=== PATIENT | female | born 1965 | race Caucasian/White ===

== ENCOUNTER 2017-08-09 15:51 | Outpatient (CLI) | payer BC, OTHER ==
--- NOTE | 2017-08-10 16:56 | Mammography Report ---
DIGITAL SCREENING MAMMOGRAM: 08/09/2017 CLINICAL INDICATION: A 52-year-old with history of benign excisional biopsy for screening, history of late childbearing. COMPARISON: 06/03/2014, 04/28/2014, 04/11/2014, 10/31/2013, 06/28/2010, 12/01/2009, 11/24/2009. TECHNIQUE: Routine CC and MLO projections were obtained of the breasts. FINDINGS: The breasts again demonstrate heterogeneously dense fibroglandular parenchyma bilaterally. Post-biopsy changes in the right breast are stable. Coarse and punctate, typically benign calcifications are present. No suspicious masses, clustered microcalcifications, or regions of architectural distortion are identified. IMPRESSION: BENIGN FINDINGS. RECOMMENDATION: Routine annual screening unless otherwise clinically indicated. BIRADS category 2 benign findings. STANDARD QUALIFYING STATEMENTS 1. This examination was reviewed with the aid of Computed-Aided Detection (CAD). 2. A negative or benign imaging report should not delay biopsy if clinically suspicious findings are present. Consider surgical consultation if warranted. More than 5% of cancers are not identified by imaging. 3. Dense breasts may obscure an underlying neoplasm. TD: 08/10/2017 15:04
== END 2017-08-09 15:52 | disposition home or self-care (01) ==
LOC: DI 15:51
PROVIDERS: ATTEND Physician Assistant
DX: Z12.31 Encounter for screening mammogram for malignant neoplasm of breast (principal)
CPT/HCPCS: 77067

== ENCOUNTER 2018-11-28 16:11 | Outpatient (CLI) | payer OTHER ==
--- NOTE | 2018-11-29 14:58 | Mammography Report ---
Reason: SCREENING MAMMO Procedure Date: 11/28/2018 Accession Number: [id number] / [id number] Procedure: SARAH - Screening Mammo w/Javy CPT Code: FULL RESULT: EXAM: Screening Mammo w/Javy DATE: 11/28/2018 4:59 PM CLINICAL HISTORY: Routine screening. History of prior right breast surgery. TECHNIQUE: (B) - Bilateral CC and MLO views were obtained. COMPARISON: 08/09/2017, 04/28/2014, 04/11/2014 and 10/31/2013 PARENCHYMAL PATTERN: (VD) - The breasts demonstrate extremely dense parenchyma bilaterally, limiting the sensitivity of mammography. FINDINGS: No significant interval change on the left. There are no suspicious masses, calcifications, or areas of distortion. On the right there are 2 nodules, one measuring 2.8 cm in the immediate retroareolar breast and the other measuring 1.5 cm in the 9:00 position approximately 8.5 cm from the nipple. Other nodules may be present but obscured by the dense breast tissue. Postsurgical architectural distortion is also present in the 9:00 position. No suspicious microcalcifications on the right. IMPRESSION: Incomplete examination. BI-RADS category 0. Needs right breast ultrasound. Negative left breast. RECOMMENDATION: (ADDUS) - Targeted ultrasound recommended. Right breast BI-RADS CATEGORY: (0) - Incomplete Examination - need additional evaluation. STANDARD QUALIFYING STATEMENTS: 1. This examination was not reviewed with the aid of Computer-Aided Detection (CAD). 2. A negative or benign imaging report should not preclude biopsy if clinically suspicious findings are present. 3. Dense breasts may obscure an underlying neoplasm. 4. This examination was reviewed with the aid of 3D breast imaging (tomosynthesis).
== END 2018-11-28 16:12 | disposition home or self-care (01) ==
LOC: DI 16:11
PROVIDERS: ATTEND Internal Medicine
DX: Z12.31 Encounter for screening mammogram for malignant neoplasm of breast (principal)
CPT/HCPCS: 77063; 77067

== ENCOUNTER 2019-10-21 07:55 | Day surgery (SDC) | payer OTHER ==
[~2019-10-21 07:55] MED LIST: BUFFERED LIDOCAINE 10 ML SYRINGE ONE; CEFAZOLIN SODIUM IN 0.9 % NACL 2 GM/100 ML BAG IV ONE
[2019-10-21] MEDS ORDERED: MIDAZOLAM 2 MG/2 ML VIAL IVP ONE (07:56)
[2019-10-21] MEDS ORDERED: fentaNYL 100 MCG/2 ML VIAL IVP ONE (07:56)
[2019-10-21] MEDS ORDERED: PROPOFOL 200 MG/20 ML VIAL IVP ONE (07:56)
[2019-10-21] MEDS ORDERED: ONDANSETRON 4 MG/2 ML VIAL IVP ONE (07:56)
[2019-10-21] MEDS ORDERED: DEXAMETHASONE 4 MG/ML VIAL IVP ONE (07:56)
[2019-10-21] MEDS ORDERED: BUFFERED LIDOCAINE 10 ML SYRINGE IU ONE (09:57)
--- NOTE | 2019-10-21 11:50 | ANESTHESIA ---
Pre-Anesthesia VS, & Labs - Diagnosis right breast mass - Procedure right breast lumpectomy after needle localization Vital Signs: Temp Pulse Resp BP Pulse Ox 36.8 C 71 16 119/62 96 10/21/19 08:00 10/21/19 08:00 10/21/19 08:00 10/21/19 08:00 10/21/19 08:00 Height 57 ft Weight (kg) 188.5 kg Body Mass Index 26.7 - NPO >8 hours - Is Patient ?: No Home Medications and Allergies Home Medications: Ambulatory Orders Aspirin [Aspirin EC] 81 mg PO DAILY 09/30/19 Calcium Carbonate [Calcium] 600 mg PO BID 09/30/19 Cholecalciferol (Vitamin D3) [Vitamin D] 2,000 unit PO DAILY 09/30/19 Glucos Sul 2Kcl/MSM/Chond/C/Mn [Glucosamine Chondroitin Cap] 1 each PO DAILY 09/30/19 Ibuprofen [Motrin] 600 mg PO Q6H PRN 09/30/19 Active Medications Lidocaine/Sodium Bicarbonate (Buffered Lidocaine) 10 ml IU ONCE ONE Stop: 10/21/19 09:58 Last Admin: 10/21/19 09:58 Dose: 10 ml Documented by: Lactobacillus Combination No.4 [Probiotic] 1 cap PO DAILY 10/01/14 Aspirin [Aspirin EC] 81 mg PO DAILY 09/30/19 Calcium Carbonate [Calcium] 600 mg PO BID 09/30/19 Cholecalciferol (Vitamin D3) [Vitamin D] 2,000 unit PO DAILY 09/30/19 Glucos Sul 2Kcl/MSM/Chond/C/Mn [Glucosamine Chondroitin Cap] 1 each PO DAILY 09/30/19 Ibuprofen [Motrin] 600 mg PO Q6H PRN 09/30/19 Allergies/Adverse Reactions: Allergies Allergy/AdvReac Type Severity Reaction Status Date / Time morphine AdvReac Severe Nausea Verified 10/18/19 11:31 fluoroquinolones Allergy hepatitis Uncoded 10/18/19 11:31 Anes History & Medical History - Anesthetic History Anesthesia Complications: reports: Post-Operative Nausea/Vomiting - Medical History Cardiovascular: reports: None Pulmonary: reports: None Gastrointestinal: reports: GERD, Hepatitis (fluroquinolones induced), Other Urinary: reports: None Neuro: reports: None Musculoskeletal: reports: Osteoarthritis Endocrine/Autoimmune: reports: None Blood Disorders: reports: None Skin: reports: Rosacea Smoking Status: Never smoker Psychosocial: reports: No issues indicated - Surgical History General: Cholecystectomy, Colonoscopy, EGD Eyes Ears Nose Throat (EENT): Tonsil/Adenoidectomy Gynecologic: Other Neurologic: Other Dermatologic: Skin cancer surgery Exam General: Alert, Oriented x3, Cooperative, No acute distress Dental: WNL, Other (overbite) Mouth Openin Fingerbreadth Neck Mobility: Normal Mallampati classification: III Thyromental Distance: 4-6 cm Mental/Cognitive Status: Alert/Oriented X3, Normal for patient Plan Anesthesia Type: General Consent for Procedure(s) Verified and Reviewed: Yes Code Status: Attempt Resuscitation ASA classification: 2-Mild systemic disease Is this case an emergency?: No
[2019-10-21] MEDS ORDERED: BUPIVACAINE 0.5% PF 30 ML VIAL ONE (12:06)
[2019-10-21] MEDS ORDERED: LIDOCAINE 1%-EPI 1:100000 20 ML MDV ONE (12:06)
[2019-10-21] MEDS ORDERED: LIDOCAINE 1%-EPI 1:100000 30 ML MDV SUBQ ONE ×2 (12:48)
[2019-10-21] MEDS ORDERED: BUPIVACAINE 0.5%-EPI 1:200000 PF 30 ML VIAL SUBQ ONE ×2 (12:48)
--- NOTE | 2019-10-21 13:13 | OPERATIVE REPORT ---
Operative Report - General Planned Procedure: Right breast lumpectomy after needle localization Pre-Op Diagnosis: Right breast mass Procedure Performed: Right breast lumpectomy after needle localization Post Op Diagnosis: Same - Procedure Note Primary Surgeon: Segundo Anesthesia Provider: MEGHAN Martinez Anesthesia Technique: General LMA, Local Pathology: Specimen oriented and submitted to pathology Estimated Blood Loss (mL): 25 Indications: Biopsy proven papillary lesion of the right breast Findings: Clip contained within the specimen Complications: None apparent - Other Other Information/Narrative: After obtaining informed consent, the patient is brought to the operating room and placed in the supine position on the operating table. Following successful induction of general endotracheal anesthesia, appropriate padding of all bony prominences, and placement appropriate monitors, the right breast was prepped and draped in the standard surgical fashion. A timeout was held per scope protocol. All elements of the surgical safety checklist were followed before, during, and after the procedure. We began the procedure by infiltrating a mixture of local anesthetics around the localizing wire in the inframammary fold to the right breast. Incision was then created here and carried through the skin and subcutaneous tissue. The palpable mass and wire were grasped with an Allis clamp and liberated from the surrounding tissue sharply. The specimen was marked for orientation and submitted to pathology. Unfortunately, while we were marking the specimen the wire became dislodged. It was submitted with the specimen in the same container. The wound was checked for hemostasis it was irrigated with warm water and checked repeatedly. We were satisfied with our hemostatic condition, the wound was closed in 2 layers with Vicryl Monocryl suture and Dermabond applied. The radiologist called back in the room notifying us that the marking clip was in the center of the specimen. All sponge, needle, and instrument counts were correct at the conclusion of the case the patient was allowed to wake from anesthesia without difficulty and taken to the postanesthesia care unit in good condition.
[2019-10-21] MEDS ORDERED: IBUPROFEN 600 MG TABLET PO PRN ×2 (13:16→13:20)
[2019-10-21] MEDS ORDERED: ONDANSETRON 4 MG/2 ML VIAL IVP PRN ×2 (13:16→13:35)
[2019-10-21] MEDS ORDERED: ACETAMINOPHEN 325 MG TABLET PO PRN (13:16)
[2019-10-21] MEDS ORDERED: traMADol 50 MG TABLET PO PRN (13:17)
[2019-10-21] MEDS ORDERED: LACTATED RINGERS 1,000 ML IV ONE (13:18)
[2019-10-21] MEDS ORDERED: HYDROmorphone 0.5 MG/0.5 ML SYRINGE IVP PRN (13:35)
[2019-10-21] MEDS ORDERED: NALOXONE 0.4 MG/ML VIAL IVP PRN (13:35)
[2019-10-21] MEDS ORDERED: ATROPINE ABBOJECT 1 MG/10 ML SYRINGE IVP PRN (13:35)
[2019-10-21] MEDS ORDERED: fentaNYL 100 MCG/2 ML VIAL IVP PRN (13:35)
[2019-10-21] MEDS ORDERED: ONDANSETRON 4 MG/2 ML VIAL ONE (13:36)
[2019-10-21] MEDS ORDERED: LACTATED RINGERS 1,000 ML IV SCH (14:00)
[2019-10-21 14:52] VITALS: BP 133/60
[2019-10-21] MEDS ORDERED: NON FORMULARY MED (Calcium Carbonate [Calcium] 600 MG) PO SCH (21:00)
--- NOTE | 2019-10-22 06:02 | Ultrasound Report ---
ULTRASOUND GUIDED WIRE LOCALIZATION RIGHT BREAST WITH POST MAMMOGRAPHIC IMAGIN10/21/2019 CLINICAL: Pre-op wire localization with ultrasound guidance. Correlation is made to exams dated: 09/04/2019 ultrasound biopsy, 09/04/2019 mammogram, 08/19/2019 ultra sound, and 08/19/2019 mammogram - [facility]. A wire localization using ultrasound guidance was performed for the irregular shaped mass located in the right breast at 8 o'clock posterior depth. This was described on the previous mammography and ul trasound reports. The skin was prepped in the usual manner. Topical and local anesthetic was admini stered to the access site. A skin darby was made in the breast. The localization was approached from the lateral aspect. A J-hook wire was inserted into the targeted area under ultrasound guidance. A sterile dressing was applied to the access site. Post placement mammographic imaging was obtained. IMPRESSION: WIRE LOCALIZATION Wire localization for the mass in the right breast at 8 o'clock posterior depth was successful. Jolie Grimm M.D. [facility]/:10/21/2019 17:02:52 BI-RADS CATEGORY: () - Unspecified - other recall n/a LATERALITY: (B)
--- NOTE | 2019-10-22 06:02 | Mammography Report ---
SPECIMEN RIGHT BREAST: 10/21/2019 CLINICAL: Post right lumpectomy. Right breast specimen. Correlation is made to exams dated: 10/21/2019 mammogram, 10/21/2019 localization - [facility], 09/04/2019 mammogram, 08/19/2019 mammogram - [facility], 11/28/2018 mammogram, and 2017 mammogram - [facility]. A surgical biopsy specimen was imaged for the mass located in the right breast at 8 o'clock posterio r depth. Biopsy clip was present in the mid portion of the specimen. Localization wire had been rem pily. IMPRESSION: SPECIMEN The imaged specimen includes a biopsy clip. Jolie Grimm M.D. [facility]/:10/21/2019 17:04:49 BI-RADS CATEGORY: () - Unspecified - other recall n/a LATERALITY: (B)
--- NOTE | 2019-10-22 06:02 | Mammography Report ---
UNILATERAL RIGHT DIGITAL DIAGNOSTIC MAMMOGRAM: 10/21/2019 CLINICAL: Pre op wire localization with ultrasound. Comparison is made to exams dated: 09/04/2019 mammogram, 08/19/2019 mammogram - [facility], 019 mammogram, and [facility] The tissue of right breast is heterogeneously dense. This may lower the sensitivity of mammography. There is a marker clip and mass in the 8 o'clock position of the right breast. Localiztion wire is i mmediately adjacent to the clip. IMPRESSION: POST PROCEDURE MAMMOGRAM FOR MARKER PLACEMENT There was a successful wire localization in the right breast at the 8 o'clock position. NOTE: For mammograms, a report in lay terms will be sent to the patient. Approximately 15% of breast malignancies will not be visualized mammographically. In the management of a palpable breast mass, a negative mammogram must not discourage biopsy of a clinically suspicious lesion. Electronically Signed By: Jolie Grimm M.D. [facility]/:10/21/2019 17:08:50 ACR BI-RADS Category Post-procedure mammogram for marker placement PARENCHYMAL PATTERN: (D) - The breast(s) demonstrate(s) heterogeneously dense fibroglandular parnaima ma. BI-RADS CATEGORY: () - Unspecified - other recall n/a LATERALITY: (B)
[2019-10-22] MEDS ORDERED: ASPIRIN EC 81 MG TABLET PO SCH (09:00)
[2019-10-22] MEDS ORDERED: NON FORMULARY MED (Cholecalciferol (Vitamin D3) [Vitamin D3] 2,000 UNIT) PO SCH (09:00)
[2019-10-22] MEDS ORDERED: [UNRECOGNIZED DRUG - OTHER] PO SCH (09:00)
[2019-10-22] MEDS ORDERED: GLUCOS SUL PO SCH (09:00)
[2019-10-22] MEDS ORDERED: LACTOBACILLUS COMBINATION NO 4 PO SCH (09:00)
--- NOTE | 2019-10-22 10:12 | ANESTHESIA POST OP EVALUATION ---
Anesthesia Post Eval - Post Anesthesia Eval Vitals: Last Vital Signs Temp 36.5 C 10/21/19 14:40 Pulse 68 10/21/19 14:40 Resp 15 10/21/19 14:40 BP 133/60 H 10/21/19 14:40 Pulse Ox 98 10/21/19 14:40 CV Function Including HR & BP: positive: Stable Pain Control: positive: Satisfactory Nausea & Vomiting: positive: Negative Mental Status: positive: Baseline Respiratory Status: Airway Patent Hydration Status: Satisfactory Anesthesia Complications: positive: None
== END 2019-10-21 07:56 | disposition home or self-care (01) ==
LOC: SDS 07:55
PROVIDERS: ATTEND Surgery
PROC: 0HBT0ZZ Excision of Right Breast, Open Approach (ICD-10-PCS; principal; 2019-10-21 09:30)
DX: D24.1 Benign neoplasm of right breast (principal); K58.9 Irritable bowel syndrome, unspecified; E55.9 Vitamin D deficiency, unspecified; K21.9 Gastro-esophageal reflux disease without esophagitis; Z87.891 Personal history of nicotine dependence; Z79.82 Long term (current) use of aspirin
CPT/HCPCS: 19285; 19301; 76098; 77065; J0690; J7120

== ENCOUNTER 2020-01-05 15:40 | Emergency (ER) | payer OTHER ==
[2020-01-05 15:48] VITALS: BP 140/70
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
== END 2020-01-05 17:19 | disposition home or self-care (01) ==
LOC: ED 15:40
DX: S42.251A Displaced fracture of greater tuberosity of right humerus, initial encounter for closed fracture (principal); V19.9XXA Pedal cyclist (driver) (passenger) injured in unspecified traffic accident, initial encounter; Y93.55 Activity, bike riding
CPT/HCPCS: 99283; 99284

== ENCOUNTER 2021-10-01 15:07 | Outpatient (CLI) | payer OTHER ==
--- NOTE | 2021-10-01 16:10 | XRAY Report ---
PROCEDURE: Calcaneus LT INDICATIONS: LT CALCANEAL PAIN TECHNIQUE: Two views of the calcaneus were acquired. COMPARISON: None FINDINGS: Bones: No fractures or dislocations. Well-defined plantar calcaneal enthesophyte is seen. No suspici ous bony lesions. Soft tissues: No suspicious calcifications. Achilles tendon appears normal. IMPRESSION: Well-defined plantar calcaneal enthesophyte. No calcaneal fracture or dislocation. No gross soft tiss ue abnormality. Reviewed by: Santhosh Cruz MD on 10/01/2021 4:08 PM PDT Approved by: Santhosh Cruz MD on 10/01/2021 4:08 PM PDT Station ID: [id number]
== END 2021-10-01 15:08 | disposition home or self-care (01) ==
LOC: DI 15:07
PROVIDERS: ATTEND Podiatrist
DX: M77.32 Calcaneal spur, left foot (principal)

== ENCOUNTER 2023-08-30 19:35 | Emergency (ER) | payer OTHER ==
[2023-08-30 20:01] VITALS: BP 149/89; O2SAT 100
--- NOTE | 2023-08-30 20:44 | XRAY Report ---
PROCEDURE: Chest 2V INDICATIONS: coughing/fever TECHNIQUE: 2 views of the chest were acquired. COMPARISON: None. FINDINGS: Surgical changes and devices: None. Lungs and pleura: No pleural effusions or pneumothorax. Lungs are clear. Mediastinum: Mediastinal contours appear normal. Heart size is normal. Bones and chest wall: No suspicious bony lesions. Overlying soft tissues appear unremarkable. IMPRESSION: No acute cardiopulmonary process. No focal consolidation. Reviewed by: Harvinder Chan MD on 08/30/2023 8:42 PM PDT Approved by: Harvinder Chan MD on 08/30/2023 8:42 PM PDT Station ID: [id number]
[2023-08-30 21:01] LABS: CORONAVIRUS 229E-RESP PCR NOT DETECTED; CORONAVIRUS HKU1-RESP PCR NOT DETECTED; CORONAVIRUS NL63-RESP PCR NOT DETECTED; CORONAVIRUS OC43-RESP PCR NOT DETECTED; HUMAN METAPNEUMOVIRUS NOT DETECTED; INFLUENZA A- RESP PCR PANEL NOT DETECTED; RHINOVIRUS/ENTEROVIRUS NOT DETECTED; SARS-CoV-2 -RESP PCR PANEL NOT DETECTED
[2023-08-30 21:02] LABS: B. PARAPERTUSSIS- RESP PCR PAN NOT DETECTED; B. PERTUSSIS- RESP PCR PANEL NOT DETECTED; C. PNEUMONIAE- RESP PCR PANEL NOT DETECTED; INFLUENZA B - RESP PCR PANEL NOT DETECTED; M. PNEUMONIAE- RESP PCR PANEL NOT DETECTED; PARAINFLUENZA VIRUS 1 NOT DETECTED; PARAINFLUENZA VIRUS 2 NOT DETECTED; PARAINFLUENZA VIRUS 3 NOT DETECTED; PARAINFLUENZA VIRUS 4 NOT DETECTED; RSV- RESP PCR PANEL NOT DETECTED
--- NOTE | 2023-08-30 21:12 | ED Physician Documentation ---
History of Present Illness - Stated complaint Stated Complaint: COUGH/FEVER - Chief complaint Chief Complaint: Resp - History obtained from History obtained from: Patient - Additonal information Additional information: 58-year-old woman presents with nonproductive cough starting today at home with Tmax 99.5. Patient also endorses sore throat but denies shortness of breath, chest pain, nausea vomiting diarrhea or back pain. PD PAST MEDICAL HISTORY - Past Medical History Past Medical History: Yes Cardiovascular: None Respiratory: None Neuro: None Endocrine/Autoimmune: None GI: GERD, Hepatitis, Other [employer]: None : None HEENT: Chronic vision loss Psych: Depression Musculoskeletal: Osteoarthritis Derm: Rosacea - Past Surgical History Past Surgical History: Yes General: Cholecystectomy, Colonoscopy, EGD /[employer]: Other Neuro: Other HEENT: Tonsil/Adenoidectomy Derm: Skin cancer surgery - Present Medications Home Medications: Ambulatory Orders Medication Instructions Recorded Confirmed Ibuprofen [Motrin] 600 mg PO Q6HR PRN tablet 10/21/19 - Allergies Allergies/Adverse Reactions: Allergies Allergy/AdvReac Type Severity Reaction Status Date / Time morphine AdvReac Severe Nausea Verified 08/30/23 20:00 fluoroquinolones Allergy hepatitis Uncoded 08/30/23 20:00 - Social History Does the pt smoke?: No Smoking Status: Never smoker Does the pt drink ETOH?: No Does the pt have substance abuse?: No - Immunizations Immunizations are current?: Yes - POLST Patient has POLST: No PD ED PE NORMAL - Vitals Vital signs reviewed: Yes - General General: Alert and oriented X 3, No acute distress, Well developed/nourished - HEENT HEENT: Atraumatic, PERRL, EOMI, Moist mucous membranes, Pharynx benign - Neck Neck: Supple, no meningeal sign - Cardiac Cardiac: RRR - Respiratory Respiratory: No respiratory distress, Clear bilaterally - Abdomen Abdomen: Non tender, Non distended - Derm Derm: Normal color Results - Vitals Vitals: Vital Signs - 24 hr 08/30/23 19:54 Temperature 36.7 C Heart Rate 83 Respiratory 18 Rate Blood Pressure 149/89 H O2 Saturation 100 Oxygen O2 Source Room air - Labs Labs: Laboratory Tests 08/30/23 20:00 Nasal Adenovirus (PCR) NOT DETECTED Nasal B. parapertussis DNA (PCR) NOT DETECTED Nasal Coronavir 229E PCR NOT DETECTED Nasal Coronavir HKU1 PCR NOT DETECTED Nasal Coronavir NL63 PCR NOT DETECTED Nasal Coronavir OC43 PCR NOT DETECTED Nasal Enterovir/Rhinovir PCR NOT DETECTED Nasal Influenza B PCR NOT DETECTED Nasal Influenza A PCR NOT DETECTED Nasal Parainfluen 1 PCR NOT DETECTED Nasal Parainfluen 2 PCR NOT DETECTED Nasal Parainfluen 3 PCR NOT DETECTED Nasal Parainfluen 4 PCR NOT DETECTED Nasal RSV (PCR) NOT DETECTED Nasal B.pertussis DNA PCR NOT DETECTED Nasal C.pneumoniae (PCR) NOT DETECTED Gabe Human Metapneumo PCR NOT DETECTED Nasal M.pneumoniae (PCR) NOT DETECTED Nasal SARS-CoV-2 (PCR) NOT DETECTED PD Medical Decision Making - ED course ED course: 58-year-old woman presents with URI symptoms for a day, with negative RVP likely secondary to false negative. Well-appearing with benign vitals and exam. Symptomatic care discussed and return precautions given. Plan to follow-up outpatient with primary care provider. Departure - Departure Disposition: 01 Home, Self Care Clinical Impression: URI, acute Condition: Stable Instructions: ED Viral Syndrome Comments: You were seen in the emergency department for cold symptoms. You received a one time dose of steroids. Please follow-up with your primary care provider and return to the emergency department if you have any new or worsening symptoms or other concerns. Forms: PCP List, Activity restrictions Discharge Date/Time: 08/30/23 21:28
[2023-08-30] MEDS: DEXAMETHASONE 10 MG/ML VIAL PO STA (21:25)
[2023-08-30] MEDS: CHERRY SYRUP 10 ML UDC PO ONE (21:25)
== END 2023-08-30 21:28 | disposition home or self-care (01) ==
LOC: ED 19:35
DX: J06.9 Acute upper respiratory infection, unspecified (principal)
CPT/HCPCS: 71046; 87633; 99283; 99284; A9270

== ENCOUNTER 2023-09-05 11:22 | Outpatient (CLI) | payer OTHER ==
--- NOTE | 2023-09-05 11:46 | XRAY Report ---
PROCEDURE: Chest 2V INDICATIONS: ACUTE COUGH, BRONCHITIS TECHNIQUE: 2 views of the chest were acquired. COMPARISON: 08/30/2023. FINDINGS: Surgical changes and devices: None. Lungs and pleura: No pleural effusions or pneumothorax. Lungs are clear. Mediastinum: Mediastinal contours appear normal. Heart size is normal. Bones and chest wall: No suspicious bony lesions. Overlying soft tissues appear unremarkable. IMPRESSION: No acute cardiopulmonary process. Reviewed by: Jayce Love MD on 09/05/2023 11:45 AM PDT Approved by: Jayce Love MD on 09/05/2023 11:45 AM PDT Station ID: [id number]
== END 2023-09-05 11:23 | disposition home or self-care (01) ==
LOC: DI 11:22
PROVIDERS: ATTEND Physician Assistant
DX: R05.1 Acute cough (principal); J40 Bronchitis, not specified as acute or chronic